=== PATIENT | male | born 1940 | race Caucasian/White ===

== ENCOUNTER → 2016-11-02 | Outpatient (CLI) | payer MEDICARE, BC ==
[~2016-11-02] MED LIST: ASP81TEC PO; ATOR10TA; ATR20T PO; ATRV10T; ATRV10T PO; CEFU500T5; CPR500T PO; DABI150C2 PO; DILT120C54 PO; GLIM4TAB; GLMP2T PO; HYDR-229 PO; MECL12.579 PO; MTF500T PO; NAPR-243; OMEG-12 PO; PHEN200T27 PO; RMP2.5C PO
--- NOTE | 2016-11-02 14:19 | Diagnostic Imaging Report ---
PROCEDURE: CT cervical spine without contrast. TECHNIQUE: Multiple contiguous axial images were obtained through the cervical spine without the use of intravenous contrast. Sagittal and coronal reformations were then performed. INDICATION: Chronic neck pain extending into left side. FINDINGS: Sagittal and coronal reformatted images show straightening of the normal lordotic curve. Alignment is otherwise good. Body height is well maintained. There is loss of disc space from C3-C7 with large bony osteophytes both anteriorly and posteriorly. The minimal AP central canal dimension is approximately 7 mm at the C6-C7 level. Degenerative facet changes are noted throughout, mild in nature. Atlantoaxial joint shows degenerative changes with good alignment. The surrounding soft tissues appear normal. IMPRESSION: Multilevel spondylosis C3-C7 with moderate central canal stenosis at the C6-C7 level. Dictated by: Dictated on workstation # [id number]
== END ==
LOC: RAD 13:43
PROVIDERS: ATTEND Family Medicine
DX: M48.02 Spinal stenosis, cervical region (principal)
CPT/HCPCS: 72125

== ENCOUNTER → 2017-02-04 | Outpatient (CLI) | payer MEDICARE, BC ==
--- NOTE | 2017-02-04 14:20 | Diagnostic Imaging Report ---
PROCEDURE: CT chest without contrast. TECHNIQUE: Multiple contiguous axial images were obtained through the chest without the use of intravenous contrast. INDICATION: Left lower lobe pulmonary nodule. COMPARISON: 02/22/2016. FINDINGS: There are bilateral pulmonary nodules up to 5 mm in size in the left lower lobe and up to 4 mm in size in the right middle lobe along the minor fissure, stable from 02/22/2016 exam. The left lower lobe nodule in particular was seen on prior CT abdomen and pelvis and has been stable from 2013. The other nodules were only seen previously on 02/22/2016 exam. No significant consolidation or mass. The thoracic aorta is normal in caliber. No mediastinal mass. No significantly enlarged lymph nodes seen. The heart size is slightly prominent with no pericardial or pleural effusion. There is a pacemaker with two leads in place. Sections of the upper abdomen demonstrate cholecystectomy clips. There is a calcified focus in the liver, stable from the prior exam, and in the superior aspect of the right hepatic lobe, a 1.1 cm hypodense lesion is also seen which is too small to accurately characterize on an unenhanced exam and is stable from the previous, likely related to a cyst. The osseous structures demonstrate mild degenerative changes in the mid thoracic spine. IMPRESSION: Scattered pulmonary nodules up to 5 mm in size, stable from 02/22/2016 exam. These are likely related to scars. Another followup in 12 months with a low-dose unenhanced CT scan of the chest could be considered to prove longer-term stability. Dictated by: Dictated on workstation # [id number]
== END ==
LOC: RAD 13:24
PROVIDERS: ATTEND Family Medicine
DX: R91.8 Other nonspecific abnormal finding of lung field (principal); Z90.49 Acquired absence of other specified parts of digestive tract; Z95.0 Presence of cardiac pacemaker
CPT/HCPCS: 71250

== ENCOUNTER → 2017-08-05 | Outpatient (CLI) | payer MEDICARE, BC ==
--- NOTE | 2017-08-05 18:15 | Diagnostic Imaging Report ---
INDICATION: Left shoulder pain. AP, oblique and transscapular views of the left shoulder are obtained. FINDINGS: There is left anterior shoulder region battery pack for pacemaker present. There is mild marginal spurring about the distal clavicle. No acute fracture or malalignment is seen. There is no abnormal lytic or sclerotic focus. No pneumothorax is identified. IMPRESSION: Mild acromioclavicular degenerative change without other evidence of acute abnormality. Dictated by: Dictated on workstation # [id number]
== END ==
LOC: RAD 17:05
PROVIDERS: ATTEND Nurse Practitioner Family
DX: M25.512 Pain in left shoulder (principal)
CPT/HCPCS: 73030

== ENCOUNTER 2017-10-30 11:15 | Outpatient (RCR) | payer MEDICARE, BC | END 2017-10-30 11:57 | disposition home or self-care (01) | PROVIDERS: ATTEND Family Medicine | DX: M47.892 Other spondylosis, cervical region (principal); M50.30 Other cervical disc degeneration, unspecified cervical region; M21.822 Other specified acquired deformities of left upper arm ==

== ENCOUNTER → 2018-03-21 | Outpatient (CLI) | payer MEDICARE, BC ==
--- NOTE | 2018-03-21 11:15 | Diagnostic Imaging Report ---
PROCEDURE: CT chest without contrast. TECHNIQUE: Multiple contiguous axial images were obtained through the chest without the use of intravenous contrast. INDICATION: Pulmonary nodules. COMPARISON: Exam compared 02/04/2017. Exam also compared 02/22/2016. FINDINGS: Few tiny scattered largely subpleural pulmonary nodules measured maximal 5 mm in the left lower lobe, the remaining less than 5 mm, in all unchanged dating back to February 2016 consistent with benign areas of scarring and/or old granulomatous disease. No new, dominant or suspicious lung mass and there is no evidence for thoracic lymphadenopathy. There is no effusion or pneumothorax and there are no findings of pneumonia. The visualized upper abdomen revealing no acute pathology with a stable right lobe cyst and previous cholecystectomy. Pacemaker device appeared unremarkable. No pleural or pericardial effusion. Incidentally noted, nonobstructing upper pole calculus left kidney chronic. IMPRESSION: Tiny benign largely subpleural 5 mm and smaller benign nodules stable over a greater than two-year interval. No suspicious lung mass. No acute finding. Stable hepatic cysts. Nonobstructing left renal calculus. Nonaneurysmal atherosclerosis and no acute finding. Dictated by: Dictated on workstation # [id number]
== END ==
LOC: RAD 09:56
PROVIDERS: ATTEND Family Medicine
DX: R91.8 Other nonspecific abnormal finding of lung field (principal); K76.89 Other specified diseases of liver; N20.0 Calculus of kidney; I70.90 Unspecified atherosclerosis
CPT/HCPCS: 71250

== ENCOUNTER 2019-01-01 20:48 | Emergency (ER) | payer MEDICARE, BC ==
[~2019-01-01] VITALS: Ht 172.7 cm; Wt 79.4 kg
--- OUTSIDE RECORDS SUMMARY | 2019-01-01 20:53 | XMS REPORT | Encounter Summary ---
Author Author [facility] Organization [facility] Address Unknown Phone Unavailable Care Team Providers Care Traveling Repair Accountant Name Role Phone Janneth Hobson MD PCP Encounter Details Date Type Department Care Team Description 12/10/2018 Documentation Mak Black MD Cardiovascular [address] [facility] [place] [address] [place] [address] [address] [place] [address] [phone] Social History Tobacco Use Types Packs/Day Years Used Date Never Smoker Smokeless Tobacco: Never Used Alcohol Use Drinks/Week oz/Week Comments No Sex Assigned at Date Recorded Not on file as of this encounter Plan of Treatment Date Type Specialty Care Team Description 01/22/2019 Nurse Only Cardiology Ahsan Eli MD [address] [place] [address] [place] [address] [phone] 01/22/2019 Office Visit Cardiology Mak Khanna MD [address] [place] [address] [place] [address] [phone] 03/17/2019 Telephone Cardiology Ahsan Eli MD [address] [place] [address] [place] [address] [phone] as of this encounter Procedures Procedure Name Priority Date/Time Associated Diagnosis Comments LAB OUTSIDE RECORD Routine 11/21/2018 12:00 AM BI ANALYST in this encounter Results * Lab Outside Record (11/21/2018) Narrative Performed At in this encounter Visit Diagnoses Not on filein this encounter
--- OUTSIDE RECORDS SUMMARY | 2019-01-01 20:53 | XMS REPORT | Encounter Summary ---
Author Author [facility] Organization [facility] Address Unknown Phone Unavailable Care Team Providers Care Transplant Worker Name Role Phone Janneth Hobson MD PCP Reason for Visit * Reason Comments Other Encounter Details Date Type Department Care Team Description 11/24/2018 Refill Mak Black MD Other Cardiovascular [address] [facility] [address] [place] [address] [address] [place] [address] [phone] Social History Tobacco Use Types Packs/Day Years Used Date Never Smoker Smokeless Tobacco: Never Used Alcohol Use Drinks/Week oz/Week Comments No Sex Assigned at Date Recorded Not on file as of this encounter Miscellaneous Notes * Telephone Encounter - Adriana Tracybess Daily, CARLOS ENRIQUE - 11/26/2018 9:04 AM RESPIRATORY SUPERVISOR Return call pt request their Eliquis 5 mg sent to their local [facility]. Stated to pt they need to have a BMP done every 6 months while on the Eliquis. Pt request the BMP lab order sent to their PCP. Stated to pt the BMP will be faxed the Dr Hobson. Pt states the last time they were up for a device check in September [facility] suggested they get their annual and device check on the same day since they are driving so far. Pt states they want their Jory scheduled the same day. Stated to pt the schedulers for [facility]G and EP will be e mailed with request. Fax sent to PCP. Fax confirmed. ELOISA with [facility]G on 01/08/18; No changes to medication noted. Annual with [facility] on 01/22/19. Last BMP done on 06/28/17. Pt called. Sent 90 day 1 refill in this encounter Plan of Treatment Date Type Specialty Care Team Description 01/22/2019 Nurse Only Cardiology Ahsan Eli MD [address] [place] [address] [place] [address] [phone] 01/22/2019 Office Visit Cardiology Mak Khanna MD [address] [place] [address] [place] [address] [phone] 03/17/2019 Telephone Cardiology Ahsan Eli MD [address] [place] [address] [place] [address] [phone] Name Priority Associated Diagnoses Order Schedule Basic Metabolic Panel Routine [facility] current use of 1 Occurrences starting anticoagulant 11/26/2018 until 11/26/2019 as of this encounter Visit Diagnoses Diagnosis [facility] current use of anticoagulant - Primary
--- OUTSIDE RECORDS SUMMARY | 2019-01-01 20:53 | XMS REPORT | Encounter Summary ---
Author Author [facility] Organization [facility] Address Unknown Phone Unavailable Care Team Providers Care Sodium Chlorite Operator Name Role Phone Janneth Hobson MD PCP Reason for Referral * PaceArt (Routine) Status Reason Specialty Diagnoses / Referred By Referred To Procedures Contact Contact Closed Cardiology Diagnoses Ahsan Eli, [facility] Remote Cardiac MD Device pacemaker in [address] Remote Check at situ [address] Home Complete heart [place], [place] block ([facility]) [id number] P Phone: Phone: [employer] [phone] Remote Device Fax: Monitoring [phone] Encounter Details Date Type Department Care Team Description 11/14/2018 Telephone [facility] Ahsan Eli MD Cardiovascular [address] [facility] [address] [place] [address] [place], [place] [id number] Social History Tobacco Use Types Packs/Day Years Used Date Never Smoker Smokeless Tobacco: Never Used Alcohol Use Drinks/Week oz/Week Comments No Sex Assigned at Date Recorded Not on file as of this encounter Miscellaneous Notes * Telephone Encounter - Alyssa Pandey RN - 11/18/2018 2:55 PM SOFTWARE RELEASE ENGINEER Please see the follow-up disposition for future appointment scheduling instructions. in this encounter Plan of Treatment Date Type Specialty Care Team Description 01/22/2019 Nurse Only Cardiology Ahsan Eli MD [address] [place] [address] [phone] 01/22/2019 Office Visit Cardiology Mak Khanna MD [address] [place] [address] [place] [address] [phone] 03/17/2019 Telephone Cardiology Ahsan Eli MD [address] [place] [address] [place] [address] [phone] Name Priority Associated Diagnoses Date/Time Remote Device Monitoring Routine Cardiac pacemaker in situ 11/14/2018 11 :32 AM SOFTWARE RELEASE ENGINEER Complete heart block (HCC) as of this encounter Procedures Procedure Name Priority Date/Time Associated Diagnosis Comments REMOTE PACEMAKER Routine 11/14/2018 Cardiac pacemaker in situ MONITORING 11:32 AM SOFTWARE RELEASE ENGINEER Complete heart block (HCC) in this encounter Visit Diagnoses Diagnosis Pacemaker - Primary Cardiac pacemaker in situ 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
--- OUTSIDE RECORDS SUMMARY | 2019-01-01 20:53 | XMS REPORT | Clinical Summary ---
Author Author [facility] Organization [facility] Address Unknown Phone Unavailable Care Team Providers Care Appraiser Name Role Phone Janneth Hobson MD PCP Allergies No Known Allergies Current Medications Prescription Sig. Disp. Refills Start End Date Status Date glimepiride (AMARYL) 2 MG Take 2 mg by mouth every Active tablet morning before breakfast. 2 tabs in am 1 tab in pm latanoprost (XALATAN) Instill 1 drop into both Active 0.005 % ophthalmic eyes nightly. solution levothyroxine (SYNTHROID, TK 1 T PO QD 1 01/09/20 Active LEVOTHROID) 50 MCG tablet 17 gabapentin (NEURONTIN) Take 200 mg by mouth 1 04/24/20 Active 100 MG capsule nightly. 17 acetaminophen (TYLENOL) Take 1-2 tablets (325-650 06/28/20 Active 325 MG tablet mg total) by mouth every 17 4 (four) hours as needed. atorvastatin (LIPITOR) 40 Take 1 tablet (40 mg 90 tablet 3 01/09/20 Active MG tablet total) by mouth daily. 18 metoprolol tartrate Take 0.5 tablets (12.5 mg 90 tablet 3 03/12/20 Active (LOPRESSOR) 25 MG tablet total) by mouth 2 (two) 18 times a day. TAKE 1/2 TABLET BY MOUTH TWICE DAILY metformin (GLUCOPHAGE) Take 1,000 mg by mouth Active 1000 mg tablet daily. ELIQUIS 5 mg tablet TAKE 1 TABLET BY MOUTH 180 tablet 1 11/26/19 Active TWICE DAILY 19 Active Problems Patient Care Coordination Note 75 year old male admitted for right TKA. We are being consulted for medical mgmt of diabetes, CAD. Patient is without pain at this time but also had R nerve block for surgery. He has no chest pain or SOA. His blood sugars have been well controlled at home ranging from ~90-140. No complaints at this time. A little sleepy but no other issues. Problem Noted Date Cardiac resynchronization therapy pacemaker (WEALTH MANAGEMENT ADVISOR-P) in place 06/28/2017 Overview: Upgrade to WEALTH MANAGEMENT ADVISOR-P- Medtronic Percepta MRI Quad. Essential hypertension 03/09/2016 Last Assessment & Plan: Continue BB - home medication Reasonable control Carotid artery disease ([facility]) 12/23/2015 Overview: H/o carotid endarterectomy [facility] current use of anticoagulant 12/23/2015 Overview: Eliquis Anoxic brain injury ([facility]) 02/01/2014 Transaminitis 01/22/2014 Overview: LFT's improving, but still remain elevated as of 01/27 ATN (acute tubular necrosis) ([facility]) 01/22/2014 Overview: resolving Ulcer 01/22/2014 Overview: Diffuse ulcers on the trunk and upper thighs. Metabolic encephalopathy 01/22/2014 Coronary atherosclerosis of [place] coronary vessel 01/14/2014 Last Assessment & Plan: No chest pain Cardiac cath done December 2015 showed 50% lesion in OM2 proximal to patent stent - no intervention plavix resumed 03/10 S/P coronary artery stent placement 01/10/2014 Orthostatic hypotension Mixed hyperlipidemia Chronic pain disorder Overview: arthritus both knees; right knee worse. PAF (paroxysmal atrial fibrillation) ([facility]) Diabetes mellitus, type 2 ([facility]) Resolved Problems Problem Noted Date Resolved Date Atrial flutter ([facility]) 03/09/2016 01/08/2018 Last Assessment & Plan: Rate controlled with lopressor pradaxa resumed 03/10 -Hgb stable Chronic systolic heart failure ([facility]) 12/23/2015 12/26/2015 Acute systolic heart failure ([facility]) 01/29/2014 12/23/2015 Cardiac tamponade 01/25/2014 12/23/2015 Shock ([facility]) 01/25/2014 12/23/2015 Pericardial tamponade 01/22/2014 01/22/2014 Overview: s/p pericardiocentesis on 01/13/14. Shock liver 01/22/2014 12/23/2015 Cardiogenic shock ([facility]) 01/22/2014 01/22/2014 Overview: Secondary to tamponade. Tamponade 01/14/2014 01/22/2014 Cholecystitis 01/14/2014 01/22/2014 Encounters Date Type Specialty Care Team Description 12/10/2018 Documentation Cardiology Mak Khanna MD 11/27/2018 Telephone Cardiology James Tracy LPN Out Side Lab Results 11/24/2018 Refill Cardiology Mak Khanna MD Other 11/14/2018 Telephone Cardiology Ahsan Eli MD from Last 3 Months Family History Medical History Relation Name Comments Coronary artery disease Father Aneurysm Mother Parkinsonism Mother Relation Name Status Comments Daughter Alive Father (Age 95) Mother (Age 73) Son (Age 27) Social History Tobacco Use Types Packs/Day Years Used Date Never Smoker Smokeless Tobacco: Never Used Alcohol Use Drinks/Week oz/Week Comments No Sex Assigned at Date Recorded Not on file Last Filed Vital Signs Vital Sign Reading Time Taken Blood Pressure 138/78 01/08/2018 2:37 PM CDT Pulse 62 01/08/2018 2:37 PM CDT Temperature 36.6 C (97.8 F) 06/29/2017 12:39 PM CDT Respiratory Rate 18 06/29/2017 12:39 PM CDT Oxygen Saturation 97% 01/08/2018 2:37 PM CDT Inhaled Oxygen - - Concentration Weight 78.9 kg (174 lb) 01/08/2018 2:37 PM CDT Height 177.8 cm (5' 10") 01/08/2018 2:37 PM CDT Body Mass Index 24.97 01/08/2018 2:37 PM CDT Plan of Treatment Date Type Specialty Care Team Description 01/22/2019 Nurse Only Cardiology Ahsan Eli MD [address] [place] [address] [phone] 01/22/2019 Office Visit Cardiology Mak Khanna MD [address] [place] [address] [phone] 03/17/2019 Telephone Cardiology Ahsan Eli MD [address] [place] [address] [place] [address] [phone] Health Maintenance Due Date Last Done Comments Diabetes Mellitus 1941 Ophthalmology Exam Diabetes Mellitus Urine 1941 Microalbumin Medicare Annual Wellness 1941 Td # 1941 Diabetes Mellitus Foot 1951 Exam Zoster Vaccine# (1 of 2) 1991 Depression Screening 2006 PHQ-9 # Pneumococcal Immunization 2006 65+ (1 of 2 - PCV13) Diabetes Mellitus 06/22/2017 12/20/2016, 02/08/2014, 02/02/2014 Hemoglobin A1C Fall Risk Assessment # 06/29/2018 06/29/2017 Lipid Screening 01/08/2019 01/08/2018, 12/20/2016, 12/26/2015, Additional history exists Influenza Vaccine (Season 08/07/2019 Ended) Implants Implanted Type Area Shaft Headman Device Expiration Model / Identifier Date Serial / Lot Lead Ra Lead Heart MEDTRONIC 5068 Implanted: 06/29/2010 (Quantity not [facility] CAPSUREFIX on file) / [id number] / Lead Rv Lead Heart MEDTRONIC 4076 Implanted: 06/29/2010 (Quantity not Ventricle CAPSUREFIX on file) NOVUS / [id number] / Implant Lead Pacemaker Attain Lead N/A: Heart MEDTRONIC 03/27/2019 4298-88 / Compound Cv 88cm 4298-88 - Ventricle CARDIAC RHYTHM [id number] MGMT / Implanted: Qty: 1 on 06/28/2017 by [id number] Francisco Ramirez MD Implant Cement Bone [place] Hv 40gr Non-Tissue Right: DJO SURGICAL 640808 / Thicker [id number] (Thicker Than Implant Knee / [id number]) - [id number] Implanted: Qty: 1 on 03/09/2016 by Tin Orellana MD Implant Cement Bone [place] Hv 40gr Non-Tissue Right: DJO SURGICAL [id number] / Thicker [id number] (Thicker Than Implant Knee / [id number]) - [id number] Implanted: Qty: 1 on 03/09/2016 by Tin Orellana MD Implant Knee Tib Tray Cocr Finned Non-Tissue Right: BIOMET 2025 [id number] / 75mm [id number] - [id number] Implant Knee / Implanted: Qty: 1 on 03/09/2016 by [id number] Tin Orellana MD Implant Knee Vanguard Cruc Ret Non-Tissue Right: BIOMET 09/23/2025 [id number] / Intlk Rt 67.5mm [id number] - [id number] Implant Knee / Implanted: Qty: 1 on 03/09/2016 by [id number] Tin Orellana MD Implant Knee Post Series A Thin Non-Tissue Right: BIOMET 01/02/2021 [id number] / Patella 3-Peg 34mm [id number] - Implant Knee / [id number] Implanted: Qty: 1 on 03/09/2016 by Tin Orellana MD Implant Knee Vanguard Cruc Ret Tib Non-Tissue Right: BIOMET 2020 [id number] / Brg 12mm X 71/75mm [id number] - Implant Knee / [id number] Implanted: Qty: 1 on 03/09/2016 by Tin Orellana MD Implant Pacemaker Percepta Mri Quad Pacemaker Left: MEDTRONIC 2018 [id number] / Hyperbaric Technician-P [id number] - [id number] Chest CARDIAC RHYTHM [id number] Implanted: Qty: 1 on 06/28/2017 by SCOOTER / Francisco Ramirez MD [id number] Attain Performa MEDTRONIC 4298 [id number] ATTAIN PERFORMA / [id number] / [id number] W4tr01 [id number] MEDTRONIC [id number] / Implanted: 06/28/2017 (Quantity not [id number] on file) / Procedures Procedure Name Priority Date/Time Associated Diagnosis Comments LAB OUTSIDE RECORD Routine 11/21/2018 12:00 AM BUSINESS PRACTICES SUPERVISOR REMOTE PACEMAKER Routine 11/14/2018 Cardiac pacemaker in situ MONITORING 11:32 AM BUSINESS PRACTICES SUPERVISOR Complete heart block (HCC) from Last 3 Months Results * Lab Outside Record (11/21/2018) Narrative Performed At from Last 3 Months
--- OUTSIDE RECORDS SUMMARY | 2019-01-01 20:53 | XMS REPORT | Continuity of Care Document ---
Author Author [facility] Organization [facility] Address Unknown Phone Unavailable Allergies Active Description Code Type Severity Reaction Onset Reported/Identified Relationship to Patient Clinical Status Yes No Known Drug Allergies [id number] Drug Allergy Mild N/A 12/26/2009 Medications There is no data. Problems Date Dx Coded Attending Type Code Diagnosis Diagnosed By 09/05/1156 SUNNY MARTI DO Ot M21.822 OTHER SPECIFIED ACQUIRED DEFORMITIES OF 09/05/1156 SUNNY MARTI DO Ot M47.892 OTHER SPONDYLOSIS, CERVICAL REGION 09/05/1156 SUNNY MARTI DO Ot M50.30 OTHER CERVICAL DISC DEGENERATION, UNSP C 09/05/1500 NAN DANG PHD, VARINDER Coulter Ot Z47.1 AFTERCARE FOLLOWING JOINT REPLACEMENT MARTIN 09/05/1500 NAN DANG PHD, VARINDER Coulter Ot Z96.651 PRESENCE OF RIGHT ARTIFICIAL KNEE JOINT 12/07/2011 Ot 250.00 DIAB CARMEN WO COMPL, TYPE II OR UNSPEC TY 12/07/2011 Ot 414.01 CORONARY ATHEROSCLEROSIS OF [place] CORON 12/07/2011 Ot 780.4 DIZZINESS AND GIDDINESS 02/15/2012 Ot 599.70 HEMATURIA, UNSPECIFIED 02/15/2012 Ot 600.00 HYPERTROPHY (BENIGN) OF PROSTATE W/O URI 02/15/2012 Ot V58.69 OTH MED,LT, CURRENT USE 01/13/2014 CINDY DANG FACC, BELLO FACP CCDS Ot 038.9 SEPTICEMIA NOS 01/13/2014 CINDY DANG FACC, BELLO FACP CCDS Ot 250.40 DIAB W RENAL MANIFEST, TYPE II OR UNSPEC 01/13/2014 CINDY DANG FACC, BELLO FACP CCDS Ot 272.4 HYPERLIPIDEMIA NEC/NOS 01/13/2014 CINDY DANG FACC, BELLO FACP CCDS Ot 276.2 ACIDOSIS 01/13/2014 BELLO WHITE MD, FACC FACP CCDS Ot 276.7 HYPERPOTASSEMIA 01/13/2014 CINDY DANG FACC, ALI FACP CCDS Ot 348.31 METABOLIC ENCEPHALOPATHY 01/13/2014 CINDY DANG FACC, ALI FACP CCDS Ot 403.90 HYPTNSV CHR KID DIS, UNSPEC, W CHR KD ST 01/13/2014 CINDY DANG FACC, ALI FACP CCDS Ot 410.71 AC MYOCARDIAL INFARCT,SUBENDO INFARCT,IN 01/13/2014 CINDY DANG FACC, ALI FACP CCDS Ot 414.01 CORONARY ATHEROSCLEROSIS OF [place] CORON 01/13/2014 CINDY DANG FACC, ALI FACP CCDS Ot 423.9 PERICARDIAL DISEASE NOS 01/13/2014 CINDY DANG FACC, ALI FACP CCDS Ot 427.9 CARDIAC DYSRHYTHMIA NOS 01/13/2014 CINDY DANG FACC, ALI FACP CCDS Ot 440.8 ATHEROSCLEROSIS NEC 01/13/2014 CINDY DANG FACC, ALI FACP CCDS Ot 458.29 OTHER IATROGENIC HYPOTENSION 01/13/2014 CINDY DANG FACC, ALI FACP CCDS Ot 518.81 ACUTE RESPIRATORY FAILURE 01/13/2014 CINDY DANG FACC, ALI FACP CCDS Ot 572.8 OTH SEQUELA, CHR DIDI DIS 01/13/2014 CINDY DANG FACC, ALI FACP CCDS Ot 574.10 CHOLELITH W CHOLECYS NEC 01/13/2014 CINDY DANG FACC, ALI FACP CCDS Ot 583.81 NEPHRITIS NOS IN OTH DIS 01/13/2014 CINDY DANG FACC, ALI FACP CCDS Ot 584.9 ACUTE RENAL FAILURE, UNSPECIFIED 01/13/2014 CINDY DANG FACC, ALI FACP CCDS Ot 585.2 CHRONIC KIDNEY DISEASE, STAGE II (MILD) 01/13/2014 CINDY DANG FACC, ALI FACP CCDS Ot 785.52 SEPTIC SHOCK 01/13/2014 CINDY DANG FACC, ALI FACP CCDS Ot 995.92 SEVERE SEPSIS 01/13/2014 CINDY DANG FACC, ALI FACP CCDS Ot V45.01 CARDIAC PACEMAKER IN SITU 04/16/2014 RUBI SIBLEY MD Ot 348.1 ANOXIC BRAIN DAMAGE 04/16/2014 RUBI SIBLEY MD Ot V57.1 PHYSICAL THERAPY NEC 09/08/2015 JONNA DANG, ARIANNE Villareal Ot 721.0 09/08/2015 MATT JOHNSON ASSISTANT BOILER OPERATOR Ot H81.11 BENIGN PAROXYSMAL VERTIGO, RIGHT EAR 09/08/2015 MATT JOHNSON ASSISTANT BOILER OPERATOR Ot Z95.0 PRESENCE OF CARDIAC PACEMAKER 02/22/2016 Ot 427.89 CARDIAC DYSRHYTHMIAS NEC 02/22/2016 Ot 427.89 CARDIAC DYSRHYTHMIAS NEC 02/22/2016 Ot V45.01 CARDIAC PACEMAKER IN SITU 02/22/2016 Ot 794.30 ABN CARDIOVASC STUDY NOS 02/22/2016 Ot 599.70 HEMATURIA, UNSPECIFIED 02/22/2016 Ot V72.83 EXAM PRE- OPERATIVE NEC 02/22/2016 Ot V74.8 SCREEN- BACTERIAL DIS NEC 02/22/2016 Ot 592.0 CALCULUS OF KIDNEY 02/22/2016 Ot 599.70 HEMATURIA, UNSPECIFIED 02/22/2016 Ot 786.50 CHEST PAIN NOS 02/22/2016 ARIANNE COYLE MD Ot 721.0 CERVICAL SPONDYLOSIS 02/22/2016 ARIANNE COYLE MD Ot R91.1 SOLITARY PULMONARY NODULE 02/22/2016 ARIANNE COYLE MD Ot R91.1 SOLITARY PULMONARY NODULE 02/22/2016 ARIANNE COYLE MD Ot R91.1 SOLITARY PULMONARY NODULE 02/23/2016 ARIANNE COYLE MD Ot R91.8 OTHER NONSPECIFIC ABNORMAL FINDING OF SALLY 02/24/2016 ARIANNE COYLE MD Ot R91.8 OTHER NONSPECIFIC ABNORMAL FINDING OF SALLY 03/21/2016 Ot 427.89 CARDIAC DYSRHYTHMIAS NEC 03/21/2016 Ot 427.89 CARDIAC DYSRHYTHMIAS NEC 03/21/2016 Ot V45.01 CARDIAC PACEMAKER IN SITU 03/21/2016 Ot 794.30 ABN CARDIOVASC STUDY NOS 03/21/2016 Ot 599.70 HEMATURIA, UNSPECIFIED 03/21/2016 Ot V72.83 EXAM PRE- OPERATIVE NEC 03/21/2016 Ot V74.8 SCREEN- BACTERIAL DIS NEC 03/21/2016 Ot 592.0 CALCULUS OF KIDNEY 03/21/2016 Ot 599.70 HEMATURIA, UNSPECIFIED 03/21/2016 Ot 786.50 CHEST PAIN NOS 03/21/2016 ARIANNE COYLE MD Ot 721.0 CERVICAL SPONDYLOSIS 03/21/2016 ARIANNE COYLE MD Ot R91.8 OTHER NONSPECIFIC ABNORMAL FINDING OF SALLY 03/23/2016 ARIANNE COYLE MD Ot R91.8 OTHER NONSPECIFIC ABNORMAL FINDING OF SALLY 04/26/2016 NAN DANG PHD, VARINDER Coulter Ot Z47.1 AFTERCARE FOLLOWING JOINT REPLACEMENT MARTIN 04/26/2016 NAN DANG PHD, VARINDER Coulter Ot Z96.651 PRESENCE OF RIGHT ARTIFICIAL KNEE JOINT 04/26/2016 NAN DANG PHD, VARINDER Coulter Ot Z47.1 AFTERCARE FOLLOWING JOINT REPLACEMENT MARTIN 04/26/2016 NAN DANG PHD, VARINDER Coulter Ot Z96.651 PRESENCE OF RIGHT ARTIFICIAL KNEE JOINT 05/18/2016 NAN DANG PHD, VARINDER Coulter Ot Z47.1 AFTERCARE FOLLOWING JOINT REPLACEMENT MARTIN 05/18/2016 NAN DANG PHD, VARINDER Coulter Ot Z96.651 PRESENCE OF RIGHT ARTIFICIAL KNEE JOINT 06/28/2016 ORENDER DO, SUNNY S Ot E03.9 HYPOTHYROIDISM, UNSPECIFIED 06/28/2016 ORENDER DO, SUNNY S Ot E04.2 NONTOXIC MULTINODULAR GOITER 07/18/2016 ORENDER DO, SUNNY S Ot E03.9 HYPOTHYROIDISM, UNSPECIFIED 07/18/2016 ORENDER DO, SUNNY S Ot E04.2 NONTOXIC MULTINODULAR GOITER 09/10/2016 ORENDER DO, SUNNY S Ot R51 HEADACHE 10/04/2016 ORENDER DO, SUNNY S Ot R51 HEADACHE 11/05/2016 ORENDER DO, SUNNY S Ot M48.02 SPINAL STENOSIS, CERVICAL REGION 11/08/2016 ORENDER DO, SUNNY S Ot M48.02 SPINAL STENOSIS, CERVICAL REGION 11/27/2016 ORENDER DO, SUNNY S Ot M48.02 SPINAL STENOSIS, CERVICAL REGION 01/30/2017 ARIANNE COYLE MD Ot 721.0 CERVICAL SPONDYLOSIS 01/30/2017 ARIANNE COYLE MD Ot R91.8 OTHER NONSPECIFIC ABNORMAL FINDING OF SALLY 01/30/2017 ORENDER DO, SUNNY S Ot E03.9 HYPOTHYROIDISM, UNSPECIFIED 01/30/2017 ORENDER DO, SUNNY S Ot E04.2 NONTOXIC MULTINODULAR GOITER 01/30/2017 TINYNDER DO, SUNNY S Ot R51 HEADACHE 01/30/2017 TINYNDER DO, SUNNY S Ot M48.02 SPINAL STENOSIS, CERVICAL REGION 02/01/2017 Ot 427.89 CARDIAC DYSRHYTHMIAS NEC 02/01/2017 Ot V45.01 CARDIAC PACEMAKER IN SITU 02/01/2017 Ot 794.30 ABN CARDIOVASC STUDY NOS 02/01/2017 Ot 599.70 HEMATURIA, UNSPECIFIED 02/01/2017 Ot V72.83 EXAM PRE- OPERATIVE NEC 02/01/2017 Ot V74.8 SCREEN- BACTERIAL DIS NEC 02/01/2017 Ot 592.0 CALCULUS OF KIDNEY 02/01/2017 Ot 599.70 HEMATURIA, UNSPECIFIED 02/01/2017 Ot 786.50 CHEST PAIN NOS 02/01/2017 ARIANNE COYLE MD Ot 721.0 CERVICAL SPONDYLOSIS 02/01/2017 ARIANNE COYLE MD Ot R91.8 OTHER NONSPECIFIC ABNORMAL FINDING OF SALLY 02/01/2017 DAVID MARTI DOLINE S Ot E03.9 HYPOTHYROIDISM, UNSPECIFIED 02/01/2017 KAIA DO SUNNY S Ot E04.2 NONTOXIC MULTINODULAR GOITER 02/01/2017 MATTHEWMARCOS DO SUNNY S Ot R51 HEADACHE 02/01/2017 MATTHEWER DO, SUNNY S Ot M48.02 SPINAL STENOSIS, CERVICAL REGION 02/05/2017 KAIA CAMARA, SUNNY S Ot R91.8 OTHER NONSPECIFIC ABNORMAL FINDING OF SALLY 02/05/2017 KAIA CAMARA, SUNNY S Ot Z90.49 ACQUIRED ABSENCE OF OTHER SPECIFIED PART 02/05/2017 TINYNDER DO, SUNNY S Ot Z95.0 PRESENCE OF CARDIAC PACEMAKER 02/27/2017 MATTHEWER DO, SUNNY S Ot R91.8 OTHER NONSPECIFIC ABNORMAL FINDING OF SALLY 02/27/2017 TINYNDER DO, SUNNY S Ot Z90.49 ACQUIRED ABSENCE OF OTHER SPECIFIED PART 02/27/2017 TINYNDER DO, SUNNY S Ot Z95.0 PRESENCE OF CARDIAC PACEMAKER 08/06/2017 VIOLET PONCE ASSISTANT BOILER OPERATOR Ot M25.512 PAIN IN LEFT SHOULDER 08/27/2017 VIOLET PONCE ASSISTANT BOILER OPERATOR Ot M25.512 PAIN IN LEFT SHOULDER 10/03/2017 TINYJUANITA CAMARA SUNNY S Ot R91.8 OTHER NONSPECIFIC ABNORMAL FINDING OF SALLY 10/03/2017 TINYNDER DO, SUNNY S Ot Z90.49 ACQUIRED ABSENCE OF OTHER SPECIFIED PART 10/03/2017 ORENDER DO, SUNNY S Ot Z95.0 PRESENCE OF CARDIAC PACEMAKER 10/10/2017 ORENDER DO, SUNNY S Ot M21.822 OTHER SPECIFIED ACQUIRED DEFORMITIES OF 10/10/2017 ORENDER DO, SUNNY S Ot M47.892 OTHER SPONDYLOSIS, CERVICAL REGION 10/10/2017 ORENDER DO, SUNNY S Ot M50.30 OTHER CERVICAL DISC DEGENERATION, [facility] 10/17/2017 KRISVIOLET JAIMES ASSISTANT BOILER OPERATOR Ot M25.512 PAIN IN LEFT SHOULDER 10/24/2017 ORENDER DO, SUNNY S Ot M21.822 OTHER SPECIFIED ACQUIRED DEFORMITIES OF 10/24/2017 ORENDER DO, SUNNY S Ot M47.892 OTHER SPONDYLOSIS, CERVICAL REGION 10/24/2017 ORENDER DO, SUNNY S Ot M50.30 OTHER CERVICAL DISC DEGENERATION, [facility] 10/24/2017 ORENDER DO, SUNNY S Ot M21.822 OTHER SPECIFIED ACQUIRED DEFORMITIES OF 10/24/2017 ORENDER DO, SUNNY S Ot M47.892 OTHER SPONDYLOSIS, CERVICAL REGION 10/24/2017 ORENDER DO, SUNNY S Ot M50.30 OTHER CERVICAL DISC DEGENERATION, [facility] 10/30/2017 ORENDER DO, SUNNY S Ot M21.822 OTHER SPECIFIED ACQUIRED DEFORMITIES OF 10/30/2017 ORENDER DO, SUNNY S Ot M47.892 OTHER SPONDYLOSIS, CERVICAL REGION 10/30/2017 ORENDER DO, SUNNY S Ot M50.30 OTHER CERVICAL DISC DEGENERATION, [facility] 03/18/2018 ORENDER DO, SUNNY S Ot R91.8 OTHER NONSPECIFIC ABNORMAL FINDING OF SALLY 03/18/2018 ORENDER DO, SUNNY S Ot Z90.49 ACQUIRED ABSENCE OF OTHER SPECIFIED PART 03/18/2018 ORENDER DO, SUNNY S Ot Z95.0 PRESENCE OF CARDIAC PACEMAKER 03/18/2018 VIOLET PONCE R ASSISTANT BOILER OPERATOR Ot M25.512 PAIN IN LEFT SHOULDER 03/19/2018 Ot 786.50 CHEST PAIN NOS 03/19/2018 JONNA DANG, ARIANNE Villareal Ot R91.8 OTHER NONSPECIFIC ABNORMAL FINDING OF SALLY 03/19/2018 TINYNDER , SUNNY S Ot E03.9 HYPOTHYROIDISM, UNSPECIFIED 03/19/2018 TINYNDER , SUNNY S Ot E04.2 NONTOXIC MULTINODULAR GOITER 03/19/2018 TINYNDER , SUNNY S Ot R51 HEADACHE 03/19/2018 TINYNDER , SUNNY S Ot M48.02 SPINAL STENOSIS, CERVICAL REGION 03/19/2018 TINYNDER , SUNNY S Ot R91.8 OTHER NONSPECIFIC ABNORMAL FINDING OF SALLY 03/19/2018 TINYNDER , SUNNY S Ot Z90.49 ACQUIRED ABSENCE OF OTHER SPECIFIED PART 03/19/2018 TINYNDER DO SUNNY S Ot Z95.0 PRESENCE OF CARDIAC PACEMAKER 03/19/2018 VIOLET PONCE APRN Ot M25.512 PAIN IN LEFT SHOULDER 03/24/2018 TINYNDER , SUNNY S Ot I70.90 UNSPECIFIED ATHEROSCLEROSIS 03/24/2018 TINYNDER DO, SUNNY S Ot K76.89 OTHER SPECIFIED DISEASES OF LIVER 03/24/2018 TINYNDER DO, SUNNY S Ot N20.0 CALCULUS OF KIDNEY 03/24/2018 ORENDER DO, SUNNY S Ot R91.8 OTHER NONSPECIFIC ABNORMAL FINDING OF SALLY 03/27/2018 TINYNDER DO, SUNNY S Ot I70.90 UNSPECIFIED ATHEROSCLEROSIS 03/27/2018 ORENDER DO, SUNNY S Ot K76.89 OTHER SPECIFIED DISEASES OF LIVER 03/27/2018 ORENDER DO, SUNNY S Ot N20.0 CALCULUS OF KIDNEY 03/27/2018 ORENDER DO, SUNNY S Ot R91.8 OTHER NONSPECIFIC ABNORMAL FINDING OF SALLY 04/14/2018 ORENDER DO, SUNNY S Ot I70.90 UNSPECIFIED ATHEROSCLEROSIS 04/14/2018 ORENDER DO, SUNNY S Ot K76.89 OTHER SPECIFIED DISEASES OF LIVER 04/14/2018 ORENDER DO, SUNNY S Ot N20.0 CALCULUS OF KIDNEY 04/14/2018 ORENDER DO, SUNNY S Ot R91.8 OTHER NONSPECIFIC ABNORMAL FINDING OF SALLY Procedures Code Description Performed By Performed On 00.40 PROCEDURE ON SINGLE VESSEL 01/11/2014 00.45 INSERTION OF ONE VASCULAR STENT 01/11/2014 00.66 PERCUTANEOUS TRANSLUMINAL CORONARY ANGIO 01/11/2014 36.07 INSRT OF DRUG-ELUTING CORON ARTERY STENT 01/11/2014 37.0 PERICARDIOCENTESIS 01/11/2014 37.22 LEFT HEART CARDIAC CATH 01/11/2014 38.91 ARTERIAL CATHETERIZATION 01/11/2014 88.53 LT HEART ANGIOCARDIOGRAM 01/11/2014 88.56 CORONAR ARTERIOGR-2 CATH 01/11/2014 93.93 NONMECHAN RESUSCITATION 01/12/2014 96.04 INSERT ENDOTRACHEAL TUBE 01/12/2014 96.71 CONTINUOUS INVASIVE MECHANICAL VENTILATI 01/12/2014 Results There is no data. Encounters ACCT No. Visit Date/Time Discharge Status Pt. Type Provider Facility Loc./Unit Complaint [id number] 03/21/2018 09:56:00 03/21/2018 23:59:59 CLS Outpatient DAVID MARTI DOLINE S [facility] RAD LEFT PULMONARY NODULES [id number] 10/30/2017 11:15:00 10/30/2017 11:57:00 DIS Outpatient MARY BETH MARTI DOQUELINE S [facility] REHAB CERVICAL SPONDYLOSIS; DDD; L WINGED SCAPULA [id number] 08/05/2017 17:05:00 08/05/2017 23:59:59 CLS Outpatient VIOLET PONCE APRN [facility] RAD BACK AND L SHOULDER PAIN [id number] 02/04/2017 13:24:00 02/04/2017 23:59:59 CLS Outpatient MARY BETH MARTI DOQUELINE S [facility] RAD LT LOWER LOBE PULMONARY NODULE [id number] 11/02/2016 13:43:00 11/02/2016 23:59:59 CLS Outpatient MARY BETH MARTI DOQUELINE S [facility] RAD NECK PAIN W/ RADICULOPATHY [id number] 09/06/2016 14:47:00 09/06/2016 23:59:59 CLS Outpatient MARY BETH MARTI DOQUELINE S [facility] RAD CEPHALGIA [id number] 06/27/2016 13:40:00 06/27/2016 23:59:59 CLS Outpatient ORESUNNY GRANT DO S [facility] RAD HYPOTHYROIDISM [id number] 05/18/2016 12:52:00 05/18/2016 15:01:00 DIS Outpatient NAN DANG PHD, VARINDER Coulter [facility] S/P R TKR [id number] 02/22/2016 12:55:00 02/22/2016 23:59:59 CLS Outpatient ARIANNE COYLE MD [facility] RAD NON CALCIFIED LUNG NODULE LLL [id number] 09/08/2015 10:55:00 09/08/2015 13:30:00 DIS Emergency MATT JOHNSON Killian ASSISTANT BOILER OPERATOR [facility] ER DIZZINESS [id number] 02/25/2014 13:57:00 04/16/2014 15:32:00 DIS Outpatient RUBI SIBLEY MD [facility] ANOXIC ENCEPHALOPATHY [id number] 01/11/2014 08:40:00 01/13/2014 14:00:00 DIS Inpatient CINDY DANG FACC, BELLO STOCKTON CCDS [facility] ICU CHEST PAIN R/O DC [id number] 08/14/2013 09:08:00 08/14/2013 23:59:59 CLS Outpatient ARIANNE COYLE MD [facility] RAD NUMBNESS AND [place]INGLING [id number] 01/28/2013 12:58:00 Document Registration [id number] 08/06/2012 15:00:00 Document Registration [id number] 08/06/2012 09:07:00 Document Registration [id number] 02/15/2012 05:38:00 Document Registration [id number] 02/06/2012 08:13:00 Document Registration [id number] 12/07/2011 15:25:00 Document Registration [id number] 11/02/2011 07:46:00 Document Registration [id number] 09/04/2011 10:54:00 Document Registration [id number] 07/23/2011 08:25:00 Document Registration
--- OUTSIDE RECORDS SUMMARY | 2019-01-01 20:53 | XMS REPORT | Encounter Summary ---
Author Author [facility] Organization [facility] Address Unknown Phone Unavailable Care Team Providers Care Fashion Journalist Name Role Phone Janneth Hobson MD PCP Reason for Visit * Reason Comments Out Side Lab Results Encounter Details Date Type Department Care Team Description 11/27/2018 Telephone [facility] James Tracy LPN Out Side Lab Results [facility] [address] [place] [address] Social History Tobacco Use Types Packs/Day Years Used Date Never Smoker Smokeless Tobacco: Never Used Alcohol Use Drinks/Week oz/Week Comments No Sex Assigned at Date Recorded Not on file as of this encounter Miscellaneous Notes * Telephone Encounter - James Tracy LPN - 11/27/2018 11:27 AM ACID CORRECTION HAND In coming fax from [facility] lab in [place], [place]. 2 pages of lab results sent to scan bin. in this encounter Plan of Treatment Date Type Specialty Care Team Description 01/22/2019 Nurse Only Cardiology Ahsan Eli MD [address] [place] [address] [phone] 01/22/2019 Office Visit Cardiology Mak Khanna MD [address] [place] [address] [phone] 03/17/2019 Telephone Cardiology Ahsan Eli MD [address] [place] [address] [phone] as of this encounter Visit Diagnoses Not on filein this encounter
[2019-01-01 21:40] LABS: BILIRUBIN,URINE NEGATIVE (NEGATIVE); CLARITY,URINE VERY CLOUDY; COLOR,URINE AMBER; GLUCOSE, URINE (UA) 3+ (NEGATIVE); KETONES,URINE NEGATIVE (NEGATIVE); LEUKOCYTE ESTERASE ,URINE 1+ (NEGATIVE); NITRITE,URINE NEGATIVE (NEGATIVE); PH,URINE 5 (5-9); PROTEIN,URINE 2+ (NEGATIVE); UROBILINOGEN,URINE NORMAL (NORMAL)
[2019-01-01 21:48] LABS: BASOPHILS % (AUTO) 0 % (0-10); EOSINOPHILS # (AUTO) 0.1 10^3/uL (0.0-0.3); EOSINOPHILS % (AUTO) 2 % (0-10); HEMATOCRIT 45 % (40-54); HEMOGLOBIN 15.1 G/DL (13.3-17.7); LYMPHOCYTES # (AUTO) 1.5 X 10^3 (1.0-4.0); LYMPHOCYTES % (AUTO) 21 % (12-44); MEAN CORPUSCULAR HEMOGLOBIN 31 PG (25-34); MEAN CORPUSCULAR HGB CONC 34 G/DL (32-36); MEAN CORPUSCULAR VOLUME 91 FL (80-99); MEAN PLATELET VOLUME 9.5 FL (7.4-10.4); MONOCYTES # (AUTO) 0.7 X 10^3 (0.0-1.0); MONOCYTES % (AUTO) 9 % (0-12); NEUTROPHILS # (AUTO) 4.9 X 10^3 (1.8-7.8); NEUTROPHILS % (AUTO) 68 % (42-75); PLATELET COUNT 217 10^3/uL (130-400); RED CELL DISTRIBUTION WIDTH 14.1 % (10.0-14.5); WHITE BLOOD COUNT 7.2 10^3/uL (4.3-11.0)
[2019-01-01 21:53] LABS: BACTERIA,URINE TRACE /HPF; RBC,URINE TNTC /HPF; WBC,URINE 0-2 /HPF
--- NOTE | 2019-01-01 21:54 | ED GI ---
General Chief Complaint: Abdominal/GI Problems Stated Complaint: ABD PAIN Source of Information: Patient Exam Limitations: No Limitations History of Present Illness Date Seen by Provider: Jan 01, 2019 Time Seen by Provider: 21:53 Initial Comments To ER with c/o Left sided abdominal pain associated with nausea and urge to haave a bowel movement intermittently x2 days. No fevers or chills. History of kidney stones, sees Dr Cordova and believes this pain is another kidney stone. Timing/Duration: 1-2 Days, Intermittent Severity/Quality: Moderate Location: [facility] Radiation: No Radiation Activities at Onset: None Associated Symptoms: Denies Symptoms Allergies and Home Medications Allergies Coded Allergies: No Known Drug Allergies (Unverified , 12/26/09) Home Medications Aspirin 81 Mg Tabec, 81 MG PO DAILY, (Reported) Atorvastatin 20 Mg Tablet, 20 MG PO HS, (Reported) Dabigatran Etexilate Mesylate 150 Mg Capsule, 150 MG PO BID, (Reported) Diltiazem Hcl 120 Mg Cap.sr.24h, 120 MG PO DAILY, (Reported) Glimepiride 2 Mg Tab, 2 MG PO DAILY, (Reported) Meclizine HCl 12.5 Mg Tablet, 12.5 MG PO TID PRN for DIZZINESS Prescribed by: MATT JOHNSON on 09/08/15 1235 Metformin Hcl 500 Mg Tablet, 500 MG PO DAILY, (Reported) with lunch and supper [place]-3/Dha/Epa/Fish Oil 1 Each Capsule.dr, 1 EACH PO BID, (Reported) Ramipril 2.5 Mg Cap, 2.5 MG PO BID, (Reported) Patient Home Medication List Home Medication List Reviewed: Yes Review of Systems Review of Systems Constitutional: see HPI EENTM: No Symptoms Reported Respiratory: No Symptoms Reported Cardiovascular: No Symptoms Reported Gastrointestinal: See HPI, Abdominal Pain, Diarrhea, Nausea Genitourinary: No Symptoms Reported Musculoskeletal: no symptoms reported Skin: no symptoms reported Psychiatric/Neurological: No Symptoms Reported Endocrine: No Symptoms Reported Past Huolvbs-Rpakzc-Nbjzct Hx Patient Social History Alcohol Use: Denies Use Recreational Drug Use: No Recent Foreign Travel: No Contact w/Someone Who Travel: No Immunizations Up To Date Tetanus Booster (TDap): Less than 5yrs Past Medical History Surgeries: Yes (lyphm node removed from neck) Gallbladder Respiratory: No Cardiac: Yes (PACEMAKER, CATH) High Cholesterol, Hypertension Neurological: No Reproductive Disorders: No Sexually Transmitted Disease: No Genitourinary: Yes Kidney Stones Gastrointestinal: No Musculoskeletal: Yes Arthritis Endocrine: Yes Hypothyroidsim, Diabetes, Non-Insulin dep HEENT: Yes (TAKES EYE GTTS TO PREVENT GLAUCOMA) Loss of Vision: Denies Hearing Impairment: Denies Cancer: No Psychosocial: No Integumentary: No Blood Disorders: No Physical Exam Vital Signs Vital Signs - First Documented 01/01/19 21:35 Temp 97.7 Pulse 83 Resp 18 B/P (MAP) 198/110 (139) Capillary Refill : Height/Weight/BMI Height: 5'8" Weight: 175lbs. 0.0oz. 79.100669eq; BMI Method:Estimated General Appearance: WD/WN, no apparent distress HEENT: PERRL/EOMI, normal ENT inspection Neck: non-tender, full range of motion Respiratory: no respiratory distress, no accessory muscle use Cardiovascular: regular rate, rhythm, no murmur Gastrointestinal: normal bowel sounds, soft Extremities: normal range of motion, non-tender Neurologic/Psychiatric: alert, normal mood/affect, oriented x 3 Skin: normal color, warm/dry Progress/Results/Core Measures Results/Orders Lab Results Laboratory Tests Test 01/01/19 21:35 01/01/19 21:42 Range/Units Urine Color JOSE H Urine Clarity VERY CLOUDY H Urine pH 5 5-9 Urine Specific [place] 1.020 1.016-1.022 Urine Protein 2+ H NEGATIVE Urine Glucose (UA) 3+ H NEGATIVE Urine Ketones NEGATIVE NEGATIVE Urine Nitrite NEGATIVE NEGATIVE Urine Bilirubin NEGATIVE NEGATIVE Urine Urobilinogen NORMAL NORMAL MG/DL Urine Leukocyte Esterase 1+ H NEGATIVE Urine RBC (Auto) 5+ H NEGATIVE Urine RBC TNTC H /HPF Urine WBC 0-2 /HPF Urine Crystals NONE /LPF Urine Bacteria TRACE /HPF Urine Casts NONE /LPF Urine Mucus NEGATIVE /LPF Urine Culture Indicated NO White Blood Count 7.2 4.3-11.0 10^3/uL Red Blood Count 4.93 4.35-5.85 10^6/uL Hemoglobin 15.1 13.3-17.7 G/DL Hematocrit 45 40-54 % Mean Corpuscular Volume 91 80-99 FL Mean Corpuscular Hemoglobin 31 25-34 PG Mean Corpuscular Hemoglobin Concent 34 32-36 G/DL Red Cell Distribution Width 14.1 10.0-14.5 % Platelet Count 217 130-400 10^3/uL Mean Platelet Volume 9.5 7.4-10.4 FL Neutrophils (%) (Auto) 68 42-75 % Lymphocytes (%) (Auto) 21 12-44 % Monocytes (%) (Auto) 9 0-12 % Eosinophils (%) (Auto) 2 0-10 % Basophils (%) (Auto) 0 0-10 % Neutrophils # (Auto) 4.9 1.8-7.8 X 10^3 Lymphocytes # (Auto) 1.5 1.0-4.0 X 10^3 Monocytes # (Auto) 0.7 0.0-1.0 X 10^3 Eosinophils # (Auto) 0.1 0.0-0.3 10^3/uL Basophils # (Auto) 0.0 0.0-0.1 10^3/uL Sodium Level 140 135-145 MMOL/L Potassium Level 4.4 3.6-5.0 MMOL/L Chloride Level 103 98-107 MMOL/L Carbon Dioxide Level 24 21-32 MMOL/L Anion Gap 13 5-14 MMOL/L Blood Urea Nitrogen 21 H 7-18 MG/DL Creatinine 1.36 H 0.60-1.30 MG/DL Estimat Glomerular Filtration Rate 51 BUN/Creatinine Ratio 15 Glucose Level 260 H 70-105 MG/DL Calcium Level 10.5 H 8.5-10.1 MG/DL Corrected Calcium 10.1 8.5-10.1 MG/DL Total Bilirubin 0.4 0.1-1.0 MG/DL Aspartate Amino Transf (AST/SGOT) 19 5-34 U/L Alanine Aminotransferase (ALT/SGPT) 24 0-55 U/L Alkaline Phosphatase 76 40-136 U/L Total Protein 7.0 6.4-8.2 GM/DL Albumin 4.5 3.2-4.5 GM/DL My Orders Orders - MATT JOHNSON COMPUTER DESIGNER Cbc With Automated Diff (01/01/19 21:35) Comprehensive Metabolic Panel (01/01/19 21:35) Ua Culture If Indicated (01/01/19 21:35) Abdomen/Kub 1view (01/01/19 21:35) Ct Abd/Pelvis Wo(Kidney Stone) (01/01/19 21:35) Iv Heplock-Insert (Order) (01/01/19 21:35) Ns Iv 500 Ml (Sodium Chloride 0.9%) (01/01/19 22:00) Ketorolac Injection (Toradol Injection) (01/01/19 22:00) Fentanyl Injection (Sublimaze Injection (01/01/19 22:00) Clonidine Tablet (Catapres Tablet) (01/01/19 22:00) Medications Given in ED Current Medications Medications Dose Ordered Sig/Evangelist Route Start Time Stop Time Status Last Admin Dose Admin Clonidine HCl 0.1 mg ONCE ONCE PO 01/01/19 22:00 01/01/19 22:01 DC 01/01/19 21:57 0.1 MG Fentanyl Citrate 25 mcg ONCE PRN IVP 01/01/19 22:00 01/01/19 21:58 25 MCG Ketorolac Tromethamine 15 mg ONCE ONCE IVP 01/01/19 22:00 01/01/19 22:01 DC 01/01/19 21:57 15 MG Vital Signs/I&O 01/01/19 21:35 Temp 97.7 Pulse 83 Resp 18 B/P (MAP) 198/110 (139) Departure Impression Primary Impression: Left ureteral calculus Disposition: HOME, SELF-CARE Condition: Stable Departure-Patient Inst. Decision time for Depature: 22:26 Referrals: SUNNY MARTI DO (PCP/Family) Primary Care Physician MINNIE CORDOVA MD Patient Instructions: Kidney Stones in Adults Add. Discharge Instructions: 1. Return tO ER for any fevers or intolerable pain 2. Antibiotics, pain and nausea medication as directed 3. Call Dr Cordova tomorrow to make an appointment to be seen. All discharge instructions reviewed with patient and/or family. Voiced understanding. Scripts Hydrocodone/Acetaminophen (Costa 5-325 Tablet) 1 Each Tablet 1 EACH PO Q6H PRN for PAIN-MODERATE MDD 10, #20 TAB Prov: MATT JOHNSON APRN 01/01/19 Ciprofloxacin HCl (Cipro) 500 Mg Tablet 500 MG PO BID, #10 TAB Prov: MATT JOHNSON APRN 01/01/19 Ondansetron (Ondansetron Odt) 4 Mg Tab.rapdis 4 MG PO Q4H PRN for NAUSEA/VOMITING, #10 TAB Prov: MATT JOHNSON APRN 01/01/19 Tamsulosin HCl (Flomax) 0.4 Mg Cap 0.4 MG PO DAILY, #20 CAP Prov: MATT JOHNSON APRN 01/01/19 Copy Copies To 1: MINNIE CORDOVA MD, PETER J APRN Jan 01, 2019 21:54
[2019-01-01] MEDS ORDERED: KETOROLAC 30 MG/ML VIAL IVP ONE (22:00)
[2019-01-01] MEDS ORDERED: NS IV 500 ML 500 ML IV SCH (22:00)
[2019-01-01] MEDS ORDERED: cloNIDine 0.1 MG (CATAPRES) TAB PO ONE (22:00)
[2019-01-01] MEDS ORDERED: fentaNYL INJECTION 100 MCG/2 ML AMP IVP PRN (22:00)
[2019-01-01 22:08] LABS: ALBUMIN 4.5 GM/DL (3.2-4.5); BILIRUBIN,TOTAL 0.4 MG/DL (0.1-1.0); CALCIUM 10.5 MG/DL (8.5-10.1); CREATININE SERUM 1.36 MG/DL (0.60-1.30); POTASSIUM 4.4 MMOL/L (3.6-5.0)
[2019-01-01] MEDS ORDERED: HYDR-4226 PO (22:29)
[2019-01-01] MEDS ORDERED: CIPR-225 PO (22:29)
[2019-01-01] MEDS ORDERED: TAMS0.4C98 PO (22:29)
[2019-01-01] MEDS ORDERED: ONDA4TAB11 PO (22:29)
[2019-01-01] MEDS ORDERED: RX-ONDANSETRON 4 MG ODT (ZOFRAN) PPK #4 PO STA (22:31)
[2019-01-01] MEDS ORDERED: RX-HYDROCODONE/APAP 5/325 MG #4 TAB PK PO PRN (22:45)
[2019-01-01 23:08] VITALS: BP 132/81
--- NOTE | 2019-01-02 07:59 | Diagnostic Imaging Report ---
INDICATION: Left flank and abdominal pain.. TECHNIQUE: Single supine view of the abdomen 10:14 PM CORRELATION STUDY: None FINDINGS: Cholecystectomy clips in right upper quadrant. Bowel gas pattern appearing nonobstructed. 5 mm stone projecting over the inferior pole of the left kidney. An additional 5 mm stone projects interposed between the left L3 and L4 transverse processes, could be reflective of a potential ureteral stone. Osseous structures unremarkable apart from degenerative change about the lumbar spine. IMPRESSION: 1. Nonobstructive-appearing bowel gas pattern. 2. Calcification projecting over the renal silhouette and potentially over the left ureter. Dictated by: Dictated on workstation # [id number]
--- NOTE | 2019-01-02 08:27 | Diagnostic Imaging Report ---
PROCEDURE: CT urinary tract, rule out kidney stone. TECHNIQUE: Multiple contiguous axial images were obtained through the abdomen and pelvis without the use of intravenous contrast. Auto Exposure Controls were utilized during the CT exam to meet ALARA standards for radiation dose reduction. INDICATION: Left flank and abdominal pain. COMPARISON: Multiple priors, most recent is a CT abdomen and pelvis performed on 01/11/2014. FINDINGS: Absence of intravenous contrast decreases sensitivity for detection of lymphadenopathy, focal lesions and vascular pathology. No suspicious change in a sub-pleural 5 mm pulmonary nodule in the left lower lobe (image 7 series 3), dating back to 2013, thus presumably benign. There is mild subsegmental dependent atelectasis in both lower lobes. No pleural effusion. The visualized heart is normal in size. Incompletely visualized cardiac pacemaker leads are seen. Coronary artery calcifications are demonstrated. No significant change in hepatic cyst near the hepatic dome in the right hepatic lobe (image 30 series 3). Subcentimeter foci of low-attenuation are demonstrated in the anterior left hepatic lobe and posterior right hepatic lobe inferiorly. There is a coarse calcification in the right hepatic lobe near the gallbladder fossa. The spleen is normal. Gallbladder is surgically absent. Pancreas and adrenal glands are normal. There is no biliary or pancreatic ductal dilatation demonstrated. There is mild left hydronephrosis, with dilatation of the proximal ureter up to the level of a 5 mm mid ureteral stone. The more distal left ureter is decompressed and normal. A 5 mm nonobstructing calculus is demonstrated in the left lower pole collecting system. A nonobstructing calculus is demonstrated in the lower pole of the right kidney. There is no hydroureteronephrosis on the right. The right ureter is normal. Stomach and duodenum are normal. Small bowel and colon are normal in course and caliber, without evidence of wall thickening or obstruction. There is diverticulosis of the descending and sigmoid colon, without evidence of acute diverticulitis. The appendix is normal. There is no pneumoperitoneum, abdominal free fluid, or loculated collection. No lymphadenopathy is demonstrated. There is moderate atherosclerotic calcification involving abdominal aorta, without aneurysmal dilatation. The bladder is normal. No bladder stone is demonstrated. The prostate gland is not enlarged. The abdominal wall is unremarkable. Multilevel degenerative changes involve the spine. No acute osseous abnormality is identified. IMPRESSION: A 5 mm calculus in the mid left ureter causes mild left hydroureteronephrosis. Additional nonobstructing stones are demonstrated in the lower pole of both kidneys. Subcentimeter foci of low attenuation in the liver may represent small cysts given the presence of a stable cyst near the hepatic dome. However, these are indeterminate based on the current study. If the patient is at low-risk for hepatic malignancy, no additional imaging follow-up is required. If the patient is at high-risk for hepatic malignancy, follow-up MRI recommended in 3-6 months, per [employer] Incidental Findings Committee white paper management recommendations (JACR 2017;[id number]). Findings are in agreement with initial teleradiology report. Additional findings in the liver and recommendations for followup were discussed and faxed to ER followup nurse on 01/02/2019 at 8:25 a.m. by [facility]cy. Dictated by: Dictated on workstation # [id number]
== END 2019-01-01 23:10 | disposition home or self-care (01) ==
LOC: EDUNIT# 20:48 → ER 20:49
DX: N13.2 Hydronephrosis with renal and ureteral calculous obstruction (principal); I10 Essential (primary) hypertension; E78.00 Pure hypercholesterolemia, unspecified; E03.9 Hypothyroidism, unspecified; E11.9 Type 2 diabetes mellitus without complications; Z95.0 Presence of cardiac pacemaker; Z95.9 Presence of cardiac and vascular implant and graft, unspecified; Z87.442 Personal history of urinary calculi; Z79.82 Long term (current) use of aspirin; Z79.4 Long term (current) use of insulin
CPT/HCPCS: 36415; 74018; 74176; 80053; 81000; 85025

== ENCOUNTER → 2019-01-06 | Outpatient (CLI) | payer MEDICARE, BC ==
[~2019-01-06] MED LIST changes: +CIPR-225 PO; +HYDR-4226 PO; +ONDA4TAB11 PO; +TAMS0.4C98 PO
--- NOTE | 2019-01-06 19:22 | Diagnostic Imaging Report ---
INDICATION: Renal stone. TECHNIQUE: Single supine view of the abdomen, 2:22 p.m. CORRELATION STUDY: 01/01/2019. FINDINGS: Moderate amount of overlying bowel gas and stool obscures detail. Approximately 5 mm calcification over the inferior pole of the left kidney is unchanged. A previously demonstrated calcification in the left paraspinal region is less well visualized but appears likely superimposed over the L5 transverse process, slightly migrated inferiorly from prior study. IMPRESSION: 1. Previously noted presumed left ureteric stone appears to have migrated slightly since the prior study, likely at approximately the L5 level. Dictated by: Dictated on workstation # [id number]
== END ==
LOC: RAD 14:13
PROVIDERS: ATTEND Urology
DX: N20.0 Calculus of kidney (principal)
CPT/HCPCS: 74018

== ENCOUNTER 2019-01-12 06:54 | Outpatient (CLI) | payer MEDICARE, BC ==
[~2019-01-12] VITALS: Ht 172.7 cm; Wt 79.4 kg
[2019-01-12] MEDS ORDERED: APIX5TAB PO (13:41)
[2019-01-12] MEDS ORDERED: METF-399 PO (13:41)
[2019-01-12] MEDS ORDERED: LEVO50TA6 PO (13:41)
[2019-01-12] MEDS ORDERED: METO-333 PO (13:41)
[2019-01-12] MEDS ORDERED: ATOR40TA70 PO (13:41)
[2019-01-12] MEDS ORDERED: GLIM2TAB PO ×2 (13:41)
[2019-01-12] MEDS ORDERED: GABA-486 PO (13:41)
[2019-01-12] MEDS ORDERED: LATA2.5D5 OU (13:41)
[2019-01-13] MEDS ORDERED: NITR-65 PO (11:20)
== END 2019-01-12 13:54 | disposition home or self-care (01) ==
LOC: PREOP 06:54
PROVIDERS: ATTEND Urology
DX: Z01.818 Encounter for other preprocedural examination (principal)

== ENCOUNTER 2019-01-13 07:09 | Day surgery (SDC) | payer MEDICARE, BC ==
[~2019-01-13] VITALS: Ht 172.7 cm; Wt 79.4 kg
[~2019-01-13 07:09] MED LIST changes: +APIX5TAB PO; +ATOR40TA70 PO; +GABA-486 PO; +GLIM2TAB PO; +LATA2.5D5 OU; +LEVO50TA6 PO; +METF-399 PO; +METO-333 PO
[2019-01-13 07:15] VITALS: BP 161/94
--- NOTE | 2019-01-13 07:28 | Progress Note-Pre Operative ---
Pre-Operative Progress Note H&P Reviewed The H&P was reviewed, patient examined and no changes noted. Date Seen by Provider: Jan 13, 2019 Time Seen by Provider: 07:27 Date H&P Reviewed: Jan 13, 2019 Time H&P Reviewed: 07:28 Pre-Operative Diagnosis: LT URETERAL STONE MINNIE CORDOVA MD Jan 13, 2019 07:28
[2019-01-13 07:30] VITALS: BP 168/94
[2019-01-13] MEDS ORDERED: LACTATED RINGERS 1,000 ML IV PRN (07:49)
[2019-01-13] MEDS ORDERED: cefTRIAXone FOR IV USE 1,000 MG in WATER (STERILE) FOR INJECTION 10 ML IV ONE (08:00)
--- NOTE | 2019-01-13 08:25 | Diagnostic Imaging Report ---
INDICATION: Left ureteral stone. Exam compared 01/06/2019. A subtle radiopacity of 3-4 mm projects over the sacralized left-sided transverse process of L5 in an unchanged fashion from prior. Additional pelvic calcifications stable, believed phleboliths. Stone projects over the level of the lower pole left kidney, unchanged. IMPRESSION: Left-sided radiopacities unchanged from prior. No bowel obstruction. Dictated by: Dictated on workstation # [id number]
[2019-01-13] MEDS ORDERED: ONDANSETRON 4 MG/2 ML (SDV) Z0FRAN ONE (08:52)
[2019-01-13] MEDS ORDERED: LIDOCAINE PF 2% 5 ML (XYLOCAINE) VIAL ONE (08:52)
[2019-01-13] MEDS ORDERED: SEVOFLURANE (ULTANE) 15 ML INHAL SOLN ONE (08:52)
[2019-01-13] MEDS ORDERED: proPOfol 200 MG/20 ML (DIPRIVAN) VIAL IV ONE (08:52)
[2019-01-13] MEDS ORDERED: KETOROLAC 30 MG/ML VIAL ONE (08:52)
[2019-01-13] MEDS ORDERED: FUROSEMIDE 40 MG/4 ML INJ (LASIX) ONE (08:52)
[2019-01-13] MEDS ORDERED: fentaNYL INJECTION 100 MCG/2 ML AMP ONE (08:53)
--- NOTE | 2019-01-13 09:19 | Progress Note-Post Operative ---
Post-Operative Progess Note Surgeon (s)/Plant And Equipment Worker (s) Surgeon MINNIE CORDOVA MD Plant And Equipment Worker: NONE Pre-Operative Diagnosis LT URETERAL STONE Post-Operative Diagnosis SAME Procedure & Operative Findings Date of Procedure 01/13/19 Procedure Performed/Findings LT ESWL Anesthesia Type GENERAL Estimated Blood Loss Estimated blood loss (mL): NONE Specimens/Packing Specimens Removed NONE Packing: NONE MINNIE CORDOVA MD Jan 13, 2019 09:19
--- NOTE | 2019-01-13 09:23 | Discharge Inst-Urology ---
Discharge Inst-Urology Discharge Medications New, Converted, or Re-newed RX: RX on Chart Patient Instructions/Follow Up Plan Please make appointment to been seen in office 01/22, KUB prior to it In 48 hours, if no bleeding, may resume Eliquis KUB on way home Post ESWL instructions Increase oral fluids for 48 hours and then as needed. Diet and Activity as tolerated. If questions or concerns contact your physician Or seek help at emergency department. MINNIE CORDOVA MD Jan 13, 2019 09:23
[2019-01-13] MEDS ORDERED: ONDANSETRON 4 MG/2 ML (SDV) Z0FRAN IVP PRN (10:00)
[2019-01-13] MEDS ORDERED: morphine INJ 10 MG/ML 1ML (SYR OR VIAL) IVP ONE (10:00)
[2019-01-13 10:50] VITALS: BP 161/94
[2019-01-13 11:20] VITALS: BP 148/87
[2019-01-13] MEDS ORDERED: NITR-65 PO (11:20)
--- NOTE | 2019-01-13 11:23 | Anesthesia-General Post-Op ---
General Patient Condition Mental Status/LOC: Same as Preop Cardiovascular: Satisfactory Nausea/Vomiting: Absent Respiratory: Satisfactory Pain: Controlled Complications: Absent Post Op Complications Complications None Follow Up Care/Instructions Patient Instructions None needed. Anesthesia/Patient Condition Patient Condition Patient is doing well, no complaints, stable vital signs, no apparent adverse anesthesia problems. No complications reported per nursing. UMESH FERRO CRNA Jan 13, 2019 11:23
[2019-01-13 11:50] VITALS: BP 147/93
--- NOTE | 2019-01-13 11:58 | OPERATIVE REPORT ---
DATE OF SERVICE: 01/13/2019 PREOPERATIVE DIAGNOSIS: Left mid ureteral stone. POSTOPERATIVE DIAGNOSIS: Left mid ureteral stone. OPERATION PERFORMED: Left ESWL. SURGEON: Sang Cordova MD ANESTHESIA: General. COMPLICATIONS: None. DESCRIPTION OF PROCEDURE: Under satisfactory general anesthesia, the patient in supine position on the ESWL table, the patient has refused and was against any endoscopic procedure because of a bad experience he had in 1991. Although, I explained to him that the endoscopic procedure is more accurate and while the ESWL is based on fluoroscopy and x-rays, he insisted to proceed with ESWL instead, so we localized the stone in the mid ureter. Shocks were delivered at kV of 5 and delivered a total of 3000 shocks, we could not visualize any more calcification. The patient received 40 mg of Lasix and 50 mg of Toradol IV at the end of the procedure. He tolerated the procedure and anesthesia well and was sent to recovery room in stable condition. Job ID: [id number] DocumentID: [id number] Dictated Date: 01/13/2019 09:52:01 Clipper Machine Date: 01/13/2019 11:57:50 Dictated By: SANG CORDOVA MD
--- NOTE | 2019-01-13 12:11 | Diagnostic Imaging Report ---
EXAMINATION: Supine abdomen at 11:35 a.m. INDICATION: Post ESWL. Two supine views were obtained. FINDINGS: As noted on the exam performed earlier today at 7:48 a.m., there are faint calcific densities overlying the left renal contour and the low pelvis on the left. There is also suggestion of a small phlebolith on the right. Those calcific densities are again evident on this study and do not seem to have changed significantly. No new abnormality has developed otherwise. The bowel gas pattern is nonspecific. There is no sign of an acute abnormality. IMPRESSION: The calcific densities overlying the left kidney and in the pelvis seen previously appear stable. No new abnormality has developed. Dictated by: Dictated on workstation # [id number]
[2019-01-13 12:12] VITALS: BP 147/93
== END 2019-01-13 12:22 | disposition home or self-care (01) ==
LOC: SDC 07:09
PROVIDERS: ATTEND Urology
DX: N20.1 Calculus of ureter (principal); E11.9 Type 2 diabetes mellitus without complications; I25.10 Atherosclerotic heart disease of native coronary artery without angina pectoris; I11.0 Hypertensive heart disease with heart failure; I50.9 Heart failure, unspecified; I48.91 Unspecified atrial fibrillation; E78.2 Mixed hyperlipidemia; N40.0 Benign prostatic hyperplasia without lower urinary tract symptoms; Z95.0 Presence of cardiac pacemaker; Z79.01 Long term (current) use of anticoagulants; Z79.84 Long term (current) use of oral hypoglycemic drugs; Z79.899 Other long term (current) drug therapy
CPT/HCPCS: 74018; 82962; 87081

== ENCOUNTER → 2019-01-21 | Outpatient (CLI) | payer MEDICARE, BC ==
[~2019-01-21] MED LIST changes: +NITR-65 PO
--- NOTE | 2019-01-21 16:30 | Diagnostic Imaging Report ---
INDICATION: Left nephrolithiasis. FINDINGS: There is a 3 mm calculus projecting over the lower pole of the left kidney. There are some other faint opacities projecting over the left kidney that could be stone fragments. There are no calculi seen projecting over the the right kidney or in either ureteral distribution. The previously seen calculus at the left uterovesical junction is no longer seen. IMPRESSION: Probable left nephrolithiasis. Dictated by: Dictated on workstation # [id number]
== END ==
LOC: RAD 14:03
PROVIDERS: ATTEND Urology
DX: N20.2 Calculus of kidney with calculus of ureter (principal)
CPT/HCPCS: 74018

== ENCOUNTER → 2019-02-19 | Outpatient (CLI) | payer MEDICARE, BC ==
--- NOTE | 2019-02-19 16:56 | Diagnostic Imaging Report ---
PROCEDURE: CT chest without contrast. TECHNIQUE: Multiple contiguous axial images were obtained through the chest without the use of intravenous contrast. Auto Exposure Controls were utilized during the CT exam to meet ALARA standards for radiation dose reduction. DATE: February 19, 2019. COMPARISON: CT chest March 21, 2018. February 04, 2017. INDICATION: 78-year-old male, followup pulmonary nodules. PROCEDURE: Axial noncontrasted CT images of the chest. Noncontrasted limits the evaluation of the mediastinum and vascular structures. FINDINGS: There is a 4 mm left upper lobe pulmonary nodule unchanged since February 2017 compatible with benign etiology on axial image 34. There is a 5 mm noncalcified left lower lobe pulmonary nodule on axial image 38 also stable since this comparison exam consistent with benign etiology. There is a 4 mm right middle lobe pulmonary nodule on axial image 32 which is unchanged and also consistent with benign etiology. There is a 3 mm noncalcified right middle lobe pulmonary nodule on axial image 40 which is also unchanged. There is a 2 mm noncalcified right lower lobe pulmonary nodule unchanged on axial image 42. There is no identified new or enlarging pulmonary nodule. There is no focal airspace consolidation. There is no pneumothorax. There is no pleural effusion. The central airways are patent. There are coronary artery calcifications and additional areas of atherosclerotic disease. The heart is not enlarged. There is no pericardial effusion. There is no identified abnormally enlarged mediastinal or axillary lymph node which meets CT size criteria for adenopathy. There is a low-attenuation lesion in the right lobe of the liver on axial image 51 which measures 9 mm in size with internal attenuation diagnostic for a benign hepatic cyst. The patient is status post cholecystectomy. Additional evaluation of the imaged portions of the upper abdomen is unremarkable. There are multilevel degenerative changes of the spine. There is no identified acute bony abnormality. IMPRESSION: 1. Multiple subcentimeter pulmonary nodules stable since February 2017 consistent with benign etiology. No further followup needed. 2. No identified acute cardiopulmonary abnormality. Dictated on workstation # [id number]
== END ==
LOC: RAD 15:35
PROVIDERS: ATTEND Family Medicine
DX: R91.8 Other nonspecific abnormal finding of lung field (principal); Z90.49 Acquired absence of other specified parts of digestive tract
CPT/HCPCS: 71250

== ENCOUNTER → 2020-05-19 | Outpatient (CLI) | payer MEDICARE, OTHER ==
[~2020-05-19] MED LIST changes: -GLIM2TAB PO; +GLIM2TAB4 PO; +MECL-172 PO; -MECL12.579 PO; -TAMS0.4C98 PO; +TMSL.4C PO
--- NOTE | 2020-05-19 17:25 | Diagnostic Imaging Report ---
INDICATION: Left foot and ankle pain for one week. Time of exam: 3:14 PM 3 views of the left ankle were obtained. There is soft tissue swelling about the medial and lateral ankle. Ankle mortise is well maintained. Talar dome is smooth. There are tiny osseous densities adjacent to the tip of the medial malleolus, likely avulsion fragments. Age of these are indeterminate. No other fractures are seen. There is a large plantar calcaneal spur noted. IMPRESSION: Soft tissue swelling about the ankle. There are age-indeterminate avulsions at the medial malleolus. No other abnormality is seen. Dictated by: Dictated on workstation # [id number]
--- NOTE | 2020-05-19 17:26 | Diagnostic Imaging Report ---
INDICATION: Pain and swelling to the left foot. Time of exam: 3:16 PM 3 views of the left foot were obtained. There are degenerative changes at the 1st MTP joint with joint space narrowing and marginal spurring. Remaining MTP joints as well as the interphalangeal joints are unremarkable. Metatarsals appear to be intact. No periosteal reaction or stress reaction is seen. Midfoot and hindfoot are unremarkable apart from a large plantar calcaneal spur. No acute fracture seen. IMPRESSION: Chronic changes. No acute bony abnormality is detected. Dictated by: Dictated on workstation # [id number]
== END ==
LOC: RAD 14:30
PROVIDERS: ATTEND Family Medicine
DX: S93.05XA Dislocation of left ankle joint, initial encounter (principal); X58.XXXA Exposure to other specified factors, initial encounter
CPT/HCPCS: 73610; 73630

== ENCOUNTER → 2022-05-28 | Outpatient (CLI) | payer MEDICARE ==
[~2022-05-28] MED LIST changes: -MECL-172 PO; +MECL-215 PO
--- NOTE | 2022-05-28 13:26 | Diagnostic Imaging Report ---
PROCEDURE: CT abdomen and pelvis without contrast. TECHNIQUE: Multiple contiguous axial images were obtained through the abdomen and pelvis without the use of intravenous contrast. Auto Exposure Controls were utilized during the CT exam to meet ALARA standards for radiation dose reduction. INDICATION: Left-sided abdominal pain. Correlation is made with prior CT from 01/01/2019. Lung bases are clear. No discrete liver mass is detected. Gallbladder surgically absent. No biliary duct dilatation is seen. The pancreas and spleen are unremarkable. No adrenal mass is detected. No right or left renal calculi are seen. There is a calculus in the proximal left ureter near the UPJ measuring 6 to 7 mm in size. The remainder of the left ureter is unremarkable. Right ureter is unremarkable. Aorta is calcified but nonaneurysmal. Bowel loops are normal caliber. There is diverticulosis of the descending and sigmoid colon but no evidence of acute diverticulitis. No bladder calculi are seen. Prostate is unremarkable. No free fluid identified. No definite abdominal or pelvic lymphadenopathy is seen. IMPRESSION: 1. 6 to 7 mm left UPJ calculus. No significant hydronephrosis is seen. 2. Uncomplicated diverticulosis. Dictated by: Dictated on workstation # [id number]
--- NOTE | 2022-05-28 15:59 | Diagnostic Imaging Report ---
INDICATION: History of calculi. Hematuria. COMPARISON: CT from earlier this same day. FINDINGS: A single frontal radiographic view of the abdomen was obtained. An 8 to 9 mm calculus is seen projecting over the lateral margins of the psoas shadow at the level of the L3 transverse process. This is felt to correspond to the ureteral calculus seen on CT. No unexpected radiopaque foreign bodies are seen. The small bowel loops are nondistended. There is no large collection of free intraperitoneal air. The osseous structures show age-related degenerative changes. IMPRESSION: 1. Left ureteral calculus. 2. Nonobstructed small bowel gas pattern. Dictated by: Dictated on workstation # [id number]
== END ==
LOC: RAD 12:51
PROVIDERS: ATTEND Urology
DX: N20.1 Calculus of ureter (principal); K57.30 Diverticulosis of large intestine without perforation or abscess without bleeding
CPT/HCPCS: 74018; 74176

== ENCOUNTER 2022-06-07 04:15 | Emergency (ER) | payer MEDICARE ==
[~2022-06-07] VITALS: Ht 177.8 cm; Wt 72.6 kg
--- NOTE | 2022-06-07 05:27 | ED Abdominal Pain ---
General Chief Complaint: Abdominal/GI Problems Stated Complaint: POSS KIDNEY STONE Nursing Triage Note: TO ED VIA POV AND AMBULATORY TO ROOM 6 WITH C/O ABD PAIN. PT HAS KNOWN KIDNEY STONE. PT STATES HE WANTS TO CHANGE HIS APPT WITH DR. CORDOVA TO SOONER TO HAVE KIDNEY STONE "BLASTED". TOOK 500MG PO TYLENOL AT 0000 AND 0300 AND RATES PAIN 5/10 AT THIS TIME. Source of Information: Patient Exam Limitations: No Limitations History of Present Illness Date Seen by Provider: Jun 07, 2022 Time Seen by Provider: 05:02 Initial Comments Patient to the ER by private conveyance with his and chief complaint of tonight he started having progressively worsening left flank and back pain. He has a kidney stone and is waiting for lithotripsy with Dr. Cordova. He has been using Tylenol 500 mg at midnight and again at 3 in the morning. He did not feel like it totally took his pain away. Has been pacing the floors. He has a history of a heart stent and is on Eliquis so he does not use NSAIDs. He is having some minor nausea from time to time but no vomiting. He does not have an y hydrocodone or nausea medicines. Allergies and Home Medications Allergies Coded Allergies: No Known Drug Allergies (Unverified , 12/26/09) Patient Home Medication List Home Medication List Reviewed: Yes Atorvastatin Calcium (Atorvastatin Calcium) 40 Mg Tablet, 40 MG PO HS, (Reported) Entered as Reported by: CORTNEY LANZA on 01/12/19 1341 Gabapentin (Gabapentin) 100 Mg Capsule, 200 MG PO HS, (Reported) Entered as Reported by: CORTNEY LANZA on 01/12/19 1341 Glimepiride (Glimepiride) 2 Mg Tablet, 2 MG PO HS, (Reported) Entered as Reported by: CORTNEY LANZA on 01/12/19 1341 Glimepiride (Glimepiride) 2 Mg Tablet, 4 MG PO DAILY, (Reported) Entered as Reported by: CORTNEY LANZA on 01/12/19 1341 Hydrocodone/Acetaminophen (Hydrocodone/Acetaminophen 5 MG/325 MG TAB) 1 Each Tablet, 1 EACH PO Q6H PRN for PAIN-MODERATE Prescribed by: MATT JOHNSON on 01/01/19 2778 Latanoprost (Latanoprost) 2.5 Ml Drops, 1 DROP OU HS, (Reported) Entered as Reported by: CORTNEY LANZA on 01/12/19 1341 Levothyroxine Sodium (Levothyroxine Sodium) 50 Mcg Tablet, 50 MCG PO DAILY, (R eported) Entered as Reported by: CORTNEY LANZA on 01/12/19 1341 Metformin HCl (Metformin HCl) 1,000 Mg Tablet, 1,000 MG PO BID, (Reported) Entered as Reported by: CORTNEY LANZA on 01/12/19 1341 Metoprolol Tartrate (Metoprolol Tartrate) 25 Mg Tablet, 12.5 MG PO BID, (Reported) Entered as Reported by: CORTNEY LANZA on 01/12/19 1341 Nitrofurantoin Monohyd/M-Cryst (Macrobid 100 mg Capsule) 100 Mg Capsule, 100 MG PO BID Prescribed by: CHUCK RAMOS on 01/13/19 1120 Ondansetron (Ondansetron Odt) 4 Mg Tab.rapdis, 4 MG PO Q4H PRN for NAUSEA/VOMITING Prescribed by: MATT JOHNSON on 01/01/192228 Tamsulosin HCl (Flomax) 0.4 Mg Cap, 0.4 MG PO DAILY Prescribed by: MATT JOHNSON on 01/01/192228 Review of Systems Review of Systems Constitutional: No chills, No diaphoresis EENTM: No Blurred Vision, No Double Vision Respiratory: Denies Cough, Denies Orthopnea Cardiovascular: Denies Chest Pain, Denies Lightheadedness Gastrointestinal: See HPI; Denies Abdominal Pain, Denies Constipated, Denies Diarrhea; Nausea Genitourinary: Denies Burning, Denies Discharge Musculoskeletal: see HPI; No back pain All Other Systems Reviewed Negative Unless Noted: Yes Past Wvnirqb-Umouwh-Wjygug Hx Patient Social History Tobacco Use?: No Substance use?: No Alcohol Use?: No Immunizations Up To Date Tetanus Booster (TDap): Less than 5yrs COVID19 Vaccine Summer Analyst: STATES HAS HAD 2 VACCINES Seasonal Allergies Seasonal Allergies: No Past Medical History Surgeries: Yes (lymph node removed from neck, R TKR, kidneys stones, ) Adenoidectomy, Coronary Stent, Gallbladder, Open Heart Surgery, Tonsillectomy Respiratory: No Cardiac: Yes (PACEMAKER, hx of pericardial effusion in 2013, ? 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 0.0oz. [id number]; 22.00 BMI Method:Estimated General Appearance: WD/WN, no apparent distress HEENT: PERRL/EOMI, pharynx normal Neck: full range of motion, supple, normal inspection Respiratory: lungs clear, normal breath sounds, no respiratory distress, no accessory muscle use Cardiovascular: normal peripheral pulses, regular rate, rhythm Peripheral Pulses: 2+ Radial Pulses (R), 2+ Radial Pulses (L) Gastrointestinal: normal bowel sounds, non tender, soft Neurologic/Psychiatric: alert, normal mood/affect, oriented x 3 Skin: normal color, warm/dry Progress/Results/Core Measures Results/Orders My Orders Orders - MARIA ISABEL KINCAID Hydrocodone/Apap 5/325 Tablet (Lortab 5 (06/07/22 05:30) Medications Given in ED Current Medications Medications Dose Ordered Sig/Evangelist Route Start Time Stop Time Status Last Admin Dose Admin Acetaminophen/ Hydrocodone Bitart 1 ea ONCE ONCE PO 06/07/22 05:30 06/07/22 05:31 DC 06/07/22 05:23 1 EA Vital Signs/I&O 06/07/22 04:28 Temp 36.4 Pulse 74 Resp 18 B/P (MAP) 189/98 (128) Pulse Ox 98 O2 Delivery Room Air Blood Pressure Mean: 128 Progress Progress Note #1: Time: 05:31 Progress Note The patient here because having pain. We will give him Carson and if this helps and we can set him up with some Carson and ondansetron as necessary and have him follow-up with with urology. Progress Note #2: Time: 06:09 Progress Note The patient's pain is down from a 5 to a 3. He would like another tablet before he goes. We are going to provide him with a prescription for some hydrocodone 1 to 2 tablets every 6 hours, and some ondansetron. Departure Impression Primary Impression: Ureteral calculus Disposition: 01 HOME, SELF-CARE Condition: Stable Departure-Patient Inst. Decision time for Depature: 06:10 Referrals: SUNNY MARTI DO (PCP/Family) Primary Care Physician MINNIE CORDOVA MD Patient Instructions: Kidney Stones (DC) Add. Discharge Instructions: Hydrocodone 1 or 2 tablets every 6 hours as needed for pain. Ondansetron 1 tablet every 6 hours as needed for nausea and/or vomiting. Make a follow-up appointment with Dr. Cordova for lithotripsy. Return to the ER for intractable symptoms, fever or other worrisome symptoms. All discharge instructions reviewed with patient and/or family. Voiced understanding. Scripts Ondansetron (Ondansetron Odt) 4 Mg Tab.rapdis 4 MG PO Q6H PRN for NAUSEA/VOMITING, #8 TAB 0 Refills Prov: MARIA ISABEL KINCAID 06/07/22 Hydrocodone/Acetaminophen (Hydrocodone-Acetamin 5-325 mg) 5 Mg-325 Mg Tablet 1-2 TAB PO Q6H PRN for PAIN-MODERATE (5-7), #15 TAB 0 Refills Prov: MARIA ISABEL KINCAID 06/07/22 MARIA ISABEL KINCAID Jun 07, 2022 05:27
[2022-06-07] MEDS ORDERED: HYDROcodone/APAP 5 MG/325 MG (LORTAB) TAB PO ONE ×2 (05:30→06:45)
[2022-06-07] MEDS ORDERED: ACHD5005 PO (06:12)
[2022-06-07] MEDS ORDERED: ONDA4TAB11 PO (06:12)
[2022-06-07 06:17] VITALS: BP 166/92
== END 2022-06-07 06:47 | disposition home or self-care (01) ==
LOC: EDUNIT# 04:15 → ER 04:18
DX: N20.1 Calculus of ureter (principal); Z79.01 Long term (current) use of anticoagulants
CPT/HCPCS: 99283

== ENCOUNTER → 2022-06-19 | Outpatient (CLI) | payer MEDICARE ==
[~2022-06-19] MED LIST changes: +ACHD5005 PO
--- NOTE | 2022-06-19 17:59 | Diagnostic Imaging Report ---
EXAMINATION: Abdomen 1 view HISTORY: Renal stone COMPARISON: 05/28/2022 FINDINGS: Previously seen left ureteral stone is not definitively seen. There is a extra focus of hypoattenuation projecting over the left L4 transverse process which may represent a stone slightly migrating distally. Surgical clips are seen in the right upper quadrant. No dilated bowel. IMPRESSION: 1. Previously seen left ureteral stone is not definitely seen but an extra calcific density projecting over the left L4 transverse process may represent a stone, slightly migrated distally. Dictated by: Dictated on workstation # [id number]
== END ==
LOC: RAD 13:29
PROVIDERS: ATTEND Urology
DX: N20.0 Calculus of kidney (principal)
CPT/HCPCS: 74018

== ENCOUNTER 2022-06-22 05:32 | Outpatient (CLI) | payer MEDICARE ==
[~2022-06-22] VITALS: Ht 177.8 cm; Wt 72.0 kg
[2022-06-22] MEDS ORDERED: GABA300C PO (09:30)
[2022-06-22] MEDS ORDERED: GLIP5TAB13 PO (09:30)
[2022-06-22] MEDS ORDERED: SITA100T12 PO (09:30)
[2022-06-22] MEDS ORDERED: APIX5TAB PO (09:30)
== END 2022-06-22 10:50 | disposition home or self-care (01) ==
LOC: PREOP 05:32
PROVIDERS: ATTEND Urology
DX: Z01.818 Encounter for other preprocedural examination (principal)

== ENCOUNTER 2022-06-26 06:07 | Day surgery (SDC) | payer MEDICARE ==
[~2022-06-26] VITALS: Ht 177 cm; Wt 72.0 kg
[2022-06-26] VITALS (7 sets, daily range): BP systolic 142–161; BP diastolic 83–100
[~2022-06-26 06:07] MED LIST changes: +GABA300C PO; +GLIP5TAB13 PO; +SITA100T12 PO
[2022-06-26] MEDS ORDERED: cefTRIAXone 1 GM PRE-MIX 50 ML IV ONE (06:15)
[2022-06-26] MEDS ORDERED: LACTATED RINGERS 1,000 ML IV PRN (06:15)
--- NOTE | 2022-06-26 07:09 | Progress Note-Pre Operative ---
Pre-Operative Progress Note Date of Available H&P: Jun 26, 2022 Date H&P Reviewed: Jun 26, 2022 Time H&P Reviewed: 07:09 Changes from last HP NONE Pre-Operative Diagnosis: LT PROXIMAL URETERAL STONE MINNIE CORDOVA MD Jun 26, 2022 07:09
[2022-06-26] MEDS ORDERED: proPOfol 200 MG/20 ML (DIPRIVAN) VIAL IV ONE (07:11)
[2022-06-26] MEDS ORDERED: fentaNYL INJ 100 MCG/2 ML AMP ONE (07:11)
[2022-06-26] MEDS ORDERED: LIDOCAINE PF 2% 5 ML (XYLOCAINE) VIAL ONE (07:11)
--- NOTE | 2022-06-26 07:11 | Progress Note-Post Operative ---
Post-Operative Progess Note Surgeon (s)/Title Insurance Agent (s) Surgeon MINNIE CORDOVA MD Title Insurance Agent: NONE Pre-Operative Diagnosis LT PROXIMAL URETERAL STONE Post-Operative Diagnosis SAME Procedure & Operative Findings Date of Procedure 06/26/22 Procedure Performed/Findings LT ESWL Anesthesia Type GENERAL Estimated Blood Loss Estimated blood loss (mL): NONE Specimens/Packing Specimens Removed NONE Packing: NONE MINNIE CORDOVA MD Jun 26, 2022 07:11
--- NOTE | 2022-06-26 07:14 | Discharge Inst-Urology ---
Discharge Inst-Urology Reconcile Patient Problems Problems Reviewed?: Yes Final Diagnosis LT PROXIMAL URETERAL STONE Patient Instructions/Follow Up Plan/Assessment/Instructions Please make appointment to been seen in office Monday 07/02. KUB prior to it KUB on way home Post ESWL instructions Increase oral fluids for 48 hours and then as needed. Diet and Activity as tolerated. If questions or concerns contact your physician Or seek help at emergency department. MINNIE CORDOVA MD Jun 26, 2022 07:14
[2022-06-26] MEDS ORDERED: KETOROLAC 30 MG/ML VIAL ONE (07:38)
[2022-06-26] MEDS ORDERED: ONDANSETRON 4 MG/2 ML (SDV) Z0FRAN ONE (07:38)
[2022-06-26] MEDS ORDERED: FUROSEMIDE 40 MG/4 ML INJ (LASIX) ONE (07:38)
[2022-06-26] MEDS ORDERED: SEVOFLURANE (ULTANE) 15 ML INHAL SOLN ONE (07:38)
--- NOTE | 2022-06-26 08:20 | Anesthesia-General Post-Op ---
General Patient Condition Mental Status/LOC: Same as Preop Cardiovascular: Satisfactory Nausea/Vomiting: Absent Respiratory: Satisfactory Pain: Controlled Complications: Absent Post Op Complications Complications None Follow Up Care/Instructions Patient Instructions None needed. Anesthesia/Patient Condition Patient Condition Patient is doing well, no complaints, stable vital signs, no apparent adverse anesthesia problems. No complications reported per nursing. ISIDRO SARGENT CRNA Jun 26, 2022 08:20
[2022-06-26] MEDS ORDERED: ONDANSETRON 4 MG/2 ML (SDV) Z0FRAN IVP PRN (08:30)
[2022-06-26] MEDS ORDERED: fentaNYL INJ 100 MCG/2 ML AMP IVP ONE (08:30)
[2022-06-26] MEDS ORDERED: TMSL.4C PO (08:40)
[2022-06-26] MEDS ORDERED: NITR-65 PO (08:40)
[2022-06-26] MEDS ORDERED: KETO10TA PO (08:40)
--- NOTE | 2022-06-26 08:46 | Diagnostic Imaging Report ---
ABDOMEN/KUB 1VIEW INDICATION: Left ureteral stone COMPARISON: 06/19/2022 TECHNIQUE: AP view of the abdomen FINDINGS: Stable 7 mm stone located at the left L4 transverse process. No new ureteral stones are appreciated. Cholecystectomy. Nonobstructive bowel gas pattern. IMPRESSION: Stable 7 mm left ureteral stone at the level of L4 transverse process. Dictated by: Dictated on workstation # [id number]
--- NOTE | 2022-06-26 10:30 | OPERATIVE REPORT ---
DATE OF SERVICE: 06/26/2022 PREOPERATIVE DIAGNOSIS: Left proximal ureteral stone. POSTOPERATIVE DIAGNOSIS: Left proximal ureteral stone. OPERATION PERFORMED: Left ESWL. SURGEON: Sang Cordova MD ANESTHESIA: General. COMPLICATIONS: None. DESCRIPTION OF PROCEDURE: Under satisfactory general anesthesia, the patient in supine position on the ESWL table, the left proximal ureteral stone was localized. Shocks were delivered at a kV of 6. Total of 3000 shocks completely fragmented the stone that was hardly visualized. The patient received 40 mg of Lasix and 30 mg of Toradol IV at the end of the procedure. He tolerated the procedure and anesthesia well and was sent to recovery room in stable condition. Job ID: [id number] DocumentID: [id number] Dictated Date: 06/26/2022 08:08:12 Operating Theatre Technician Date: 06/26/2022 10:29:19 Dictated By: SANG CORDOVA MD
--- NOTE | 2022-06-26 12:30 | Diagnostic Imaging Report ---
Indication: Post lithotripsy treatment for kidney stone. FINDINGS: The calculus was overlying the left L4 transverse process on 6:46 a.m. is now comminuted into small fragments. IMPRESSION: Lithotripsy treatment of a left ureteral stone. Dictated by: Dictated on workstation # [id number]
== END 2022-06-26 09:30 | disposition home or self-care (01) ==
LOC: SDC 06:07
PROVIDERS: ATTEND Urology
DX: N20.1 Calculus of ureter (principal); E11.9 Type 2 diabetes mellitus without complications; Z95.5 Presence of coronary angioplasty implant and graft; Z79.01 Long term (current) use of anticoagulants; Z79.84 Long term (current) use of oral hypoglycemic drugs; Z28.310 Unvaccinated for COVID-19
CPT/HCPCS: 74018; 82947; 87081

== ENCOUNTER → 2022-07-24 | Outpatient (CLI) | payer MEDICARE ==
[~2022-07-24] MED LIST changes: +KETO10TA PO
--- NOTE | 2022-07-24 18:26 | Diagnostic Imaging Report ---
Indication: Follow-up kidney stones. Time of Exam: 3:04 PM Correlation is made with prior abdominal radiograph from 06/26/2022. There are surgical clips in the gallbladder fossa. The fragments noted at the level of L4 on the left are not well seen on today's study. Pelvic calcifications appear stable and likely phleboliths. No definite calculi along the expected distribution of the ureters are seen. There is a questionable density overlying the upper pole of the left kidney which is indeterminate. Bowel gas pattern is nonobstructed. IMPRESSION: Previously noted calcific fragments at the level of the left L4 transverse process are no longer appreciated. Dictated by: Dictated on workstation # [id number]
== END ==
LOC: RAD 14:35
PROVIDERS: ATTEND Urology
DX: N20.2 Calculus of kidney with calculus of ureter (principal)
CPT/HCPCS: 74018